=== PATIENT | female | born 1950 | race Two or more races ===

== ENCOUNTER → 2024-06-14 | Outpatient (CLI) | payer OTHER, MEDICAID, SELFPAY ==
[2024-06-14 09:41] LABS: Alanine Aminotransferase 15 U/L (10-49); Albumin, Serum 4.5 gm/dL (3.4-4.8); Alkaline Phosphatase 110 U/L (46-116); Anion Gap 7 (7-16); Aspartate Amino Transferase 14 U/L (0-34); BUN/Creatinine Ratio 23 Ratio (12-20); Bilirubin,Total 0.5 mg/dL (0.3-1.2); Blood Urea Nitrogen 28 mg/dL (9-23); Calcium 9.4 mg/dL (8.3-10.6); Calcium (Corrected) 9.4 mg/dL (8.5-10.1); Carbon Dioxide 27.5 mMol/L (20.0-31.0); Cardiac Risk Estimate 4.1 RATIO (3.7-5.6); Chloride 105 mMol/L (98-107); Cholesterol 183 mg/dL (132-200); Creatinine (Component) 1.2 mg/dL (0.6-1.3); Free T4 (Free Thyroxine) 1.01 ng/dL (0.89-1.76); Globulin 2.3 gm/dL (2.3-3.5); Glucose 175 mg/dL (74-106); HDL Cholesterol 45 mg/dL (40-60); LDL Cholesterol,Calculated 106 mg/dL (0-130); Osmolality,Calculated 287 (275-295); Potassium 4.4 mMol/L (3.4-5.1); Sodium 139 mMol/L (136-145); Thyroid Stimulating Hormone 2.21 uIU/mL (0.55-4.78); Total Protein 6.8 gm/dL (5.7-8.2); Triglycerides 158 mg/dL (30-150); eGFR 47 See Note
[2024-06-14 09:44] LABS: Vitamin B12 986 pg/mL (211-911)
== END | disposition home or self-care (01) ==
LOC: COPL 08:30
PROVIDERS: PCP Family Medicine; Referring Provider Family Medicine; Visit Provider Family Medicine
DX: I12.9 Hypertensive chronic kidney disease with stage 1 through stage 4 chronic kidney disease, or unspecified chronic kidney disease (principal); N18.31 Chronic kidney disease, stage 3a; E78.2 Mixed hyperlipidemia; R53.1 Weakness
CPT/HCPCS: 36415; 80053; 80061; 82607; 84439; 84443

== ENCOUNTER → 2024-08-10 | Outpatient (CLI) | payer MEDICARE, MEDICAID, SELFPAY ==
[2024-08-10 15:21] LABS: Collection Type, Urine Clean Catch
[2024-08-10 16:56] LABS: Bacteria,Urine 4+; Bilirubin,Urine Negative (Negative); Blood,Urine Negative (Negative); Clarity,Urine Turbid (Clear/Hazy); Color,Urine Yellow (Lt Yel-Yel); Glucose, Urine Trace (Negative); Hyaline Casts,Urine < 1 /hpf (0-1); Ketones,Urine Negative (Negative); Leukocyte Esterase,Urine Positive (Negative); Nitrite,Urine Negative (Negative); Protein,Urine 3+ (Neg - Trace); RBC,Urine 2 /hpf (0-3); Specific Gravity,Urine 1.022 (1.001-1.035); Squamous Epithelial Cell,Urine 7 /hpf (0-5); Urobilinogen,Urine Negative mg/dL (0.0-1.0); WBC,Urine 17 /hpf (0-5)
== END | disposition home or self-care (01) ==
PROVIDERS: Referring Provider Family Medicine; Visit Provider Family Medicine
DX: N30.00 Acute cystitis without hematuria (principal)
CPT/HCPCS: 81001; 87077; 87086; 87186

== ENCOUNTER → 2024-10-28 | Outpatient (CLI) | payer MEDICARE, MEDICAID, SELFPAY ==
[2024-10-28 09:36] LABS: Basophils % (Auto) 0 % (0-2.5); Eosinophils # (Auto) 0.2 Thou/mm3 (0.0-0.5); Eosinophils % (Auto) 2 % (0-10); Hematocrit 34.3 % (36.0-46.0); Hemoglobin 11.8 g/dL (12.0-16.0); Immature Granulocytes % (Auto) 0 % (0-0); Immature Granulocytes Auto 0.01 Thou/mm3 (0.00-0.00); Lymphocytes # (Auto) 2.5 Thou/mm3 (1.0-4.8); Lymphocytes % (Auto) 34 % (10-50); Mean Corpuscular HGB Conc 34.4 g/dl (31.0-37.0); Mean Corpuscular Hemoglobin 31.1 pg (25.0-35.0); Mean Corpuscular Volume 91 fL (80-100); Monocytes # (Auto) 0.5 Thou/mm3 (0.0-0.8); Monocytes % (Auto) 7 % (0-12); Neutrophils # (Auto) 4.1 Thou/mm3 (1.8-7.7); Neutrophils % (Auto) 56 % (37-80); Nucleated Red Blood Cell % 0 /100 WBC (0); Platelet Count 240 Thou/mm3 (140-440); RDW Standard Deviation 40.3 fL (36.4-46.3); Red Blood Count 3.79 Miln/mm3 (4.00-5.20); White Blood Count 7.3 Thou/mm3 (3.6-11.0)
[2024-10-28 10:56] LABS: Glucose Estimated Average 206 mg/dL (80-131); Hemoglobin A1C 8.8 % Hgb (4.8-6.0)
[2024-10-28 11:09] LABS: Alanine Aminotransferase 12 U/L (10-49); Albumin, Serum 4.2 gm/dL (3.4-4.8); Albumin/Globulin Ratio 1.7 (1.2-2.2); Alkaline Phosphatase 101 U/L (46-116); Anion Gap 8 (7-16); Aspartate Amino Transferase 14 U/L (0-34); BUN/Creatinine Ratio 13 Ratio (12-20); Bilirubin,Total 0.5 mg/dL (0.3-1.2); Blood Urea Nitrogen 16 mg/dL (9-23); Carbon Dioxide 27.3 mMol/L (20.0-31.0); Cardiac Risk Estimate 4.4 RATIO (3.7-5.6); Chloride 101 mMol/L (98-107); Cholesterol 202 mg/dL (132-200); Creatinine (Component) 1.2 mg/dL (0.6-1.3); Globulin 2.5 gm/dL (2.3-3.5); Glucose 196 mg/dL (74-106); HDL Cholesterol 46 mg/dL (40-60); LDL Cholesterol,Calculated 118 mg/dL (0-130); Osmolality,Calculated 278 (275-295); Potassium 4.8 mMol/L (3.4-5.1); Sodium 136 mMol/L (136-145); Thyroid Stimulating Hormone 2.73 uIU/mL (0.55-4.78); Total Protein 6.7 gm/dL (5.7-8.2); Triglycerides 192 mg/dL (30-150); eGFR 47 See Note
[2024-10-28 11:35] LABS: Creatinine MALB Rnd Ur 98 mg/dL (30-125); Microalbumin Creat Ratio 388 mg/gCrea (<30); Microalbumin, Random Urine > 380 mg/L (0-300)
== END | disposition home or self-care (01) ==
LOC: COPL 08:08
PROVIDERS: PCP Family Medicine; Referring Provider Family Medicine; Visit Provider Family Medicine
DX: E11.65 Type 2 diabetes mellitus with hyperglycemia (principal)
CPT/HCPCS: 36415; 80053; 80061; 82043; 82570; 83036; 84443; 85025

== ENCOUNTER → 2025-02-02 | Outpatient (CLI) | payer MEDICARE, MEDICAID, SELFPAY ==
[2025-02-02 10:46] LABS: Anion Gap 6 (7-16); BUN/Creatinine Ratio 21 Ratio (12-20); Blood Urea Nitrogen 29 mg/dL (9-23); Calcium 9.4 mg/dL (8.3-10.6); Carbon Dioxide 26.6 mMol/L (20.0-31.0); Chloride 106 mMol/L (98-107); Creatinine (Component) 1.4 mg/dL (0.6-1.3); Glucose 192 mg/dL (74-106); Osmolality,Calculated 288 (275-295); Potassium 5.2 mMol/L (3.4-5.1); Sodium 139 mMol/L (136-145); eGFR 39 See Note
[2025-02-02 11:40] LABS: Glucose Estimated Average 209 mg/dL (80-131); Hemoglobin A1C 8.9 % Hgb (4.8-6.0)
== END | disposition home or self-care (01) ==
LOC: COPL 08:51
PROVIDERS: PCP Family Medicine; Referring Provider Family Medicine; Visit Provider Family Medicine
DX: E11.21 Type 2 diabetes mellitus with diabetic nephropathy (principal); E11.65 Type 2 diabetes mellitus with hyperglycemia
CPT/HCPCS: 36415; 80048; 83036

== ENCOUNTER → 2025-03-28 | Outpatient (CLI) | payer MEDICARE, MEDICAID, SELFPAY ==
--- NOTE | 2025-03-28 | XR_ITS ---
Examination: Knee, right , 3 views Technique: Knee AP, lateral, oblique 3 views Date and time of exam: March 28, 2025 0800 hours INDICATIONS: Knee pain beginning one year ago. FINDINGS: Moderate to advanced tricompartment osteoarthritis, most severe medial joint space Moderate osteopenia No fracture or dislocation IMPRESSION: Moderate to advanced tricompartment osteoarthritis
[2025-03-28 09:32] LABS: Anion Gap 7 (7-16); BUN/Creatinine Ratio 17 Ratio (12-20); Blood Urea Nitrogen 22 mg/dL (9-23); Calcium 9.7 mg/dL (8.3-10.6); Carbon Dioxide 27.3 mMol/L (20.0-31.0); Chloride 107 mMol/L (98-107); Creatinine (Component) 1.3 mg/dL (0.6-1.3); Glucose 165 mg/dL (74-106); Osmolality,Calculated 288 (275-295); Potassium 5.1 mMol/L (3.4-5.1); Sodium 141 mMol/L (136-145); eGFR 43 See Note
[2025-03-28 10:01] LABS: Glucose Estimated Average 192 mg/dL (80-131); Hemoglobin A1C 8.3 % Hgb (4.8-6.0)
== END | disposition home or self-care (01) ==
LOC: CDIM 07:48
PROVIDERS: Referring Provider Family Medicine; Visit Provider Family Medicine
DX: M17.11 Unilateral primary osteoarthritis, right knee (principal); N18.2 Chronic kidney disease, stage 2 (mild); E11.65 Type 2 diabetes mellitus with hyperglycemia
CPT/HCPCS: 36415; 73562; 80048; 83036

== ENCOUNTER 2025-06-07 07:49 | Outpatient (AMB) | payer MEDICARE, MEDICAID, SELFPAY ==
[2025-06-07 08:13] VITALS: BP 147/84; PULSE 75; RESP 19; TEMP 36.5; O2SAT 97; BMI 26.1
--- NOTE | 2025-06-07 08:13 | ORTHONT_ITS ---
Vital signs 06/07/25 08:13 Height 1.5 m Height Method Stated Weight 58.684 kg Weight Measurement Method Standing Scale BMI 26.1 BP 147/84 H Blood Pressure Source Automatic Cuff Blood Pressure Location Left Upper Arm Position Sitting Respiration 19 Pulse 75 Pulse Source Monitor Temp 97.7 F Temp Source Temporal Artery Scan Pulse Oximetry (%) 97 Oxygen Delivery Method Room Air Med/Allergies Allergies & Medications Allergies codeine Allergy (Intermediate, Verified 06/07/25 08:14) VOMITING Medication Reconciliation amlodipine 2.5 mg tablet 2.5 mg PO QDAY 12/02/19 [History Confirmed 12/02/19] insulin degludec 200 unit/mL (3 mL) subcutaneous pen (Tresiba FlexTouch U-200 insulin) 40 unit subcut HS 12/02/19 [History Confirmed 12/02/19] megestrol 20 mg tablet 20 mg PO BID #30 tabs 12/08/21 [Rx] alendronate 70 mg tablet 70 mg PO QWEEK 06/07/25 [History Confirmed 06/07/25] celecoxib 200 mg capsule 200 mg PO QDAY 06/07/25 [History Confirmed 06/07/25] cetirizine 10 mg tablet 10 mg PO QDAY PRN 06/07/25 [History Confirmed 06/07/25] docusate sodium 100 mg capsule 100 mg PO QDAY 06/07/25 [History Confirmed 06/07/25] empagliflozin 25 mg tablet (Jardiance) 25 mg PO QAM 06/07/25 [History Confirmed 06/07/25] glimepiride 4 mg tablet 4 mg PO QAM 06/07/25 [History Confirmed 06/07/25] metformin 500 mg tablet 500 mg PO BID 06/07/25 [History Confirmed 06/07/25] sitagliptin phosphate 100 mg tablet (Januvia) 100 mg PO QDAY 06/07/25 [History Confirmed 06/07/25] Exam Exam Patient is in no acute distress and is cooperative with the examination today. Breathing is nonlabored. Patient has a normal mood and affect. The patient has a gait that is nonantalgic Bilateral extremities were evaluated and demonstrates sensation intact to light touch. Palpable pedal pulses are present. No significant edema is present. Bilateral hips were examined. The patient has no pain with log roll of the hips. Internal rotation to 30 degrees and external rotation to 30 degrees is painless. Negative FADIR. Right knee was examined today. The right knee is in reasonable alignment. Range of motion from 0-120 degrees. Knee is stable to varus and valgus as well as AP translation with <5mm. Patient has a negative McMurrays. There is no pain with patellofemoral compression and no crepitus noted. The knee is nontender to palpation. Left knee was examined today. The left knee is in neutral alignment. Incision is clean dry and intact. There is greater than 5 mm laxity in the medial lateral and AP plane Left knee x-rays demonstrates a cemented total knee replacement. These x-rays were over 2 years old. I would like to get new ones. The right knee demonstrates severe [id number] arthritis of the medial compartment Assessment and Plan Problem List (1) Bilateral knee pain: Status: Acute Plan: Patient is a 75-year-old female with bilateral knee pain with left greater than right knee pain and a history of a left total knee replacement. I would like to get current x-rays of the left knee replacement as the prior x-rays were over 2 years old. There is symptoms of instability on the left knee. I would like to see current x-rays and we will go from there. We will likely do an infection workup as well Plan We will see her back after x-rays are done Advanced Care Planning Discussion Advance care planning discussed with:: patient Office Procedures GNS Level of Care Nursing/Assessment Patient Status: Initial/New Patient Nursing Assessment/Reassesment: Medication Reconciliation, Update PMH in EMR and Vital Signs Coordination of Care: Complex Care and Chronic Disease 1-5, Education Complex Pt/Fam, Consent,records obtained, informed consent, 1 Ins Authorization, Lab and Imaging orders, Results/Orders obtained and Staff clarify orders Special Needs: Language special needs New Patient Charge New Patient Point Assignment: 1124 New Patient Point Charge: BELL VALET Level 4 ([id number]) MA Intake Visit Data Collection New Patient or Established: New Patient (never been to [facility]) Reason for Visit:: BILATERAL KNEE PAIN Seen by Clinical Staff ONLY (RN/MA): 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 PCP or OBGYN visit in last 3 months: Yes Hx Now: No Do You Feel Safe at Home: Yes Authorities Contacted: N/A Questionairres Past Medical History Past Medical History Have you ever been diagnosed with any of the following: Cardiology Problems Congestive Heart Failure: No Hypertension: Yes Respiratory Problems Chronic Obstructive Pulmonary Disease (COPD): No Bronchitis: Yes Pneumonia: Yes Genital/Urinary Problems Renal Disease: Yes Reproductive Problems Previous Pregnancies: Yes Uterine Prolapse: Yes Musculoskeletal Problems Arthritis: Yes Head,Eye,Nose,Throat Problems Cataracts: Yes Endocrine Problems Diabetes Mellitus Type 1: No Diabetes Mellitus Type 2: Yes Blood Problems Anemia: Yes Other Problems Blood Transfusions: Yes Anesthesia Reactions: No Chicken Pox: Yes Measles: Yes Surgical History Total Knee Replacement: Yes (LEFT 2021) Hysterectomy: Yes Subjective Visit Visit for: new patient and knee (BILATERAL) Immunization / Flu Flu Vaccine in the Last 12 Months: Yes Flu Vaccine Exclusion Criteria: Already Received History of Present Illness Chief complaint: BILATERAL KNEE PAIN LEFT WORSE THAN RIGHT Date of 1st surgery (if applicable): 07/2021 HISTORY OF PRESENT ILLNESS I, Sabino Aguirre, have obtained verbal consent from the patient, to be recorded during this encounter which may include, but not limited to, medical history, examination, treatment plans, and relevant health information.? Patient was informed that recording will be read and reviewed by myself before inclusion in the medical chart. The patient is a 75-year-old female presenting for bilateral knee pain. She reports that her left knee is more painful than the right. The pain in her left knee has been present for approximately 6 months and intensifies during ambulation. She also reports a sensation of instability in her knee, which she finds particularly bothersome. She has not received any pharmacological treatment for her knee pain. She has undergone imaging studies but has not been prescribed any analgesics. She has received two injections in the past but is reluctant to continue this treatment due to a fear of needles. Three years ago, she sustained a fracture in her left leg, which was not initially casted. A year later, she underwent a total knee replacement surgery performed in [place] for the left knee. She has had 2 injections for the right knee before She is diabetic and does not have it controlled, but does not know her A1c either. PAST SURGICAL HISTORY: Total knee replacement on the left knee. Personal History Occupation: RETIRED Pain Pain level (0-10): 6 Pain duration: WORSE WHEN WALKING Pain location: groin and anterior Pain quality: dull and aching Pain timing: night, increases with activity and stairs Associated signs & symptoms: weakness Ambulatory data Ambulatory device: none Treatments Number of previous injections: 2 (RIGHT KNEE) Improvement with previous injections: No Number of Physical Therapy sessions: 0 Improvement with PT: No Improvement with NSAIDS: no Review of Systems Review of Systems: All systems negative unless otherwise noted in HPI.
--- NOTE | 2025-06-07 08:23 | XR_ITS ---
EXAMINATION: Bilateral knees 2 views Right lateral knee left lateral knee 2 views Bilateral axial knees single view TECHNIQUE: Bilateral AP knees standing single view Standing right left lateral knee 2 views Bilateral Axuni single view total 5 views Date and time: June 07, 2025, 0839 hours INDICATIONS: Bilateral knee pain 1 year FINDINGS: Severe osteopenia Severe narrowing medial joint space right knee Significant osteoarthritis right patellofemoral joint No fracture Total left knee arthroplasty. Satisfactory alignment Healed fractures proximal left tibia fibula IMPRESSION: Severe narrowing medial joint space right knee Significant osteoarthritis right patellofemoral joint
== END 2025-06-07 08:25 | disposition home or self-care (01) ==
LOC: HODSRG 07:49
PROVIDERS: PCP Family Medicine; Referring Provider Family Medicine; Supervising Provider Orthopaedic Surgery Adult Reconstructive Orthopaedic Surgery; Visit Provider Orthopaedic Surgery Adult Reconstructive Orthopaedic Surgery
DX: M25.562 Pain in left knee (principal); M25.561 Pain in right knee; M17.11 Unilateral primary osteoarthritis, right knee; Z96.652 Presence of left artificial knee joint; E11.9 Type 2 diabetes mellitus without complications; I10 Essential (primary) hypertension
CPT/HCPCS: 73564; 99204; G0463

== ENCOUNTER → 2025-06-20 | Outpatient (CLI) | payer MEDICARE, MEDICAID, SELFPAY ==
--- NOTE | 2025-06-20 08:29 | XR_ITS ---
Examination: Knee, left, 3 views Technique: Knee AP, lateral, oblique 3 views Date and time of exam: June 20, 2025, 0839 hours INDICATIONS: Left-sided knee pain 1 year. FINDINGS: Severe osteopenia Healed fractures proximal tibia and proximal fibula Total left knee arthroplasty. Satisfactory alignment. No acute fracture IMPRESSION: Total left knee arthroplasty with satisfactory alignment
[2025-06-20 09:08] LABS: Glucose Estimated Average 177 mg/dL (80-131); Hemoglobin A1C 7.8 % Hgb (4.8-6.0)
[2025-06-20 09:11] LABS: Anion Gap 9 (7-16); BUN/Creatinine Ratio 18 Ratio (12-20); Blood Urea Nitrogen 24 mg/dL (9-23); Calcium 9.3 mg/dL (8.3-10.6); Carbon Dioxide 27.7 mMol/L (20.0-31.0); Chloride 107 mMol/L (98-107); Creatinine (Component) 1.3 mg/dL (0.6-1.3); Glucose 177 mg/dL (74-106); Osmolality,Calculated 294 (275-295); Potassium 5.1 mMol/L (3.4-5.1); Sodium 144 mMol/L (136-145); eGFR 43 See Note
== END | disposition home or self-care (01) ==
PROVIDERS: PCP Family Medicine; Referring Provider Family Medicine; Visit Provider Family Medicine
DX: M25.562 Pain in left knee (principal); Z96.652 Presence of left artificial knee joint; E11.22 Type 2 diabetes mellitus with diabetic chronic kidney disease; N18.2 Chronic kidney disease, stage 2 (mild); E11.65 Type 2 diabetes mellitus with hyperglycemia
CPT/HCPCS: 36415; 73562; 80048; 83036

== ENCOUNTER 2025-06-23 08:47 | Outpatient (AMB) | payer MEDICARE, MEDICAID, SELFPAY ==
[2025-06-23 09:05] VITALS: BP 181/90; PULSE 79; RESP 20; TEMP 36.1; O2SAT 98; BMI 26.2
--- NOTE | 2025-06-23 09:05 | ORTHONT_ITS ---
Vital signs 06/23/25 09:05 Height 1.5 m Height Method Stated Weight 59.08 kg Weight Measurement Method Standing Scale BMI 26.2 BP 181/90 H Blood Pressure Source Automatic Cuff Blood Pressure Location Left Upper Arm Position Sitting Respiration 20 Pulse 79 Pulse Source Monitor Temp 97.0 F Temp Source Temporal Artery Scan Pulse Oximetry (%) 98 Oxygen Delivery Method Room Air Med/Allergies Allergies & Medications Allergies codeine Allergy (Intermediate, Verified 06/23/25 09:06) VOMITING Medication Reconciliation amlodipine 2.5 mg tablet 2.5 mg PO QDAY 12/02/19 [History Confirmed 06/23/25] insulin degludec 200 unit/mL (3 mL) subcutaneous pen (Tresiba FlexTouch U-200 insulin) 40 unit subcut HS 12/02/19 [History Confirmed 06/23/25] megestrol 20 mg tablet 20 mg PO BID #30 tabs 12/08/21 [Rx Confirmed 06/23/25] alendronate 70 mg tablet 70 mg PO QWEEK 06/07/25 [History Confirmed 06/23/25] celecoxib 200 mg capsule 200 mg PO QDAY 06/07/25 [History Confirmed 06/23/25] cetirizine 10 mg tablet 10 mg PO QDAY PRN 06/07/25 [History Confirmed 06/23/25] docusate sodium 100 mg capsule 100 mg PO QDAY 06/07/25 [History Confirmed 06/23/25] empagliflozin 25 mg tablet (Jardiance) 25 mg PO QAM 06/07/25 [History Confirmed 06/23/25] glimepiride 4 mg tablet 4 mg PO QAM 06/07/25 [History Confirmed 06/23/25] metformin 500 mg tablet 500 mg PO BID 06/07/25 [History Confirmed 06/23/25] sitagliptin phosphate 100 mg tablet (Januvia) 100 mg PO QDAY 06/07/25 [History Confirmed 06/23/25] Exam Exam Patient is in no acute distress and is cooperative with the examination today. Breathing is nonlabored. Patient has a normal mood and affect. The patient has a gait that is nonantalgic Bilateral extremities were evaluated and demonstrates sensation intact to light touch. Palpable pedal pulses are present. No significant edema is present. Bilateral hips were examined. The patient has no pain with log roll of the hips. Internal rotation to 30 degrees and external rotation to 30 degrees is painless. Negative FADIR. Right knee was examined today. The right knee is in reasonable alignment. Range of motion from 0-120 degrees. Knee is stable to varus and valgus as well as AP translation with <5mm. Patient has a negative McMurrays. There is no pain with patellofemoral compression and no crepitus noted. The knee is nontender to palpation. Left knee was examined today. The left knee is in neutral alignment. Incision is clean dry and intact. There is greater than 5 mm laxity in the medial lateral and AP plane x-rays demonstrates a cemented total knee replacement on the left in reasonable alignment position. On the right, there is severe arthritis of the right knee Assessment and Plan Problem List (1) Bilateral knee pain: Status: Acute Plan: Patient is a 75-year-old female with bilateral knee pain with left greater than right knee pain and a history of a left total knee replacement. The patient reports persistent pain in the left knee. We ordered an ESR and CRP for an infection workup but she did not do it. I discussed the patient she may want to see the original surgeon who did the surgery if she has persistent pain since the surgery. On x-rays, there are no radiolucent lines. There may be some instability on exam and we can consider upsizing the poly. This implant is not a implant that I can get my hospital as it is not a common implant and thus I recommend the patient go to the original surgeon Plan We will see her back after x-rays are done Advanced Care Planning Discussion Advance care planning discussed with:: patient Office Procedures GNS Level of Care Nursing/Assessment Patient Status: Established Patient Nursing Assessment/Reassesment: Medication Reconciliation, Update PMH in EMR and Vital Signs Coordination of Care: Complex Care and Chronic Disease 1-5, Education Complex Pt/Fam, Consent,records obtained, informed consent, Results/Orders obtained and Staff clarify orders Special Needs: Language special needs Established Patient Charge Established Patient Point Assignment: 95 Established Patient Point Charge: EP Level 3 (80-115) MA Intake Visit Data Collection New Patient or Established: Established Patient (seen at [facility] within 3 years) Reason for Visit:: BL KNEE PAIN/XRAY RESULTS Seen by Clinical Staff ONLY (RN/MA): No 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 PCP or OBGYN visit in last 3 months: Yes Hx Now: No Do You Feel Safe at Home: Yes Authorities Contacted: N/A Questionairres Past Medical History Past Medical History Have you ever been diagnosed with any of the following: Cardiology Problems Congestive Heart Failure: No Hypertension: Yes Respiratory Problems Chronic Obstructive Pulmonary Disease (COPD): No Bronchitis: Yes Pneumonia: Yes Genital/Urinary Problems Renal Disease: Yes Reproductive Problems Previous Pregnancies: Yes Uterine Prolapse: Yes Musculoskeletal Problems Arthritis: Yes Head,Eye,Nose,Throat Problems Cataracts: Yes Endocrine Problems Diabetes Mellitus Type 1: No Diabetes Mellitus Type 2: Yes Blood Problems Anemia: Yes Other Problems Blood Transfusions: Yes Anesthesia Reactions: No Chicken Pox: Yes Measles: Yes Surgical History Total Knee Replacement: Yes (LEFT 2021) Hysterectomy: Yes Subjective Visit Visit for: follow up visit and knee (BILATERAL) Immunization / Flu Flu Vaccine in the Last 12 Months: Yes Flu Vaccine Exclusion Criteria: Already Received History of Present Illness Chief complaint: BILATERAL KNEE PAIN LEFT WORSE THAN RIGHT Date of 1st surgery (if applicable): 07/2021 HISTORY OF PRESENT ILLNESS ISabino, have obtained verbal consent from the patient, to be recorded during this encounter which may include, but not limited to, medical history, examination, treatment plans, and relevant health information.? Patient was informed that recording will be read and reviewed by myself before inclusion in the medical chart. The patient is a 75-year-old female presenting for bilateral knee pain. She reports that her left knee is more painful than the right. The pain in her left knee has been present for approximately 6 months and intensifies during ambulation. She also reports a sensation of instability in her knee, which she finds particularly bothersome. She has not received any pharmacological treatment for her knee pain. She has undergone imaging studies but has not been prescribed any analgesics. She has received two injections in the past but is reluctant to continue this treatment due to a fear of needles. Three years ago, she sustained a fracture in her left leg, which was not initially casted. A year later, she underwent a total knee replacement surgery performed in [place] for the left knee. She reports significant pain since surgery on the left knee. She reports it is difficult to bend her knee. She has had 2 injections for the right knee before She is diabetic and does not have it controlled, but does not know her A1c either. PAST SURGICAL HISTORY: Total knee replacement on the left knee. Personal History Occupation: RETIRED Pain Pain level (0-10): 6 Pain duration: WORSE WHEN WALKING Pain location: groin and anterior Pain quality: dull and aching Pain timing: night, increases with activity and stairs Associated signs & symptoms: weakness Ambulatory data Ambulatory device: none Treatments Number of previous injections: 2 (RIGHT KNEE) Improvement with previous injections: No Number of Physical Therapy sessions: 0 Improvement with PT: No Improvement with NSAIDS: no Review of Systems Review of Systems: All systems negative unless otherwise noted in HPI.
== END 2025-06-23 09:37 | disposition home or self-care (01) ==
LOC: HODSRG 08:47
PROVIDERS: PCP Family Medicine; Referring Provider Family Medicine; Supervising Provider Orthopaedic Surgery Adult Reconstructive Orthopaedic Surgery; Visit Provider Orthopaedic Surgery Adult Reconstructive Orthopaedic Surgery
DX: M25.561 Pain in right knee (principal); M25.562 Pain in left knee
CPT/HCPCS: 99213; G0463

== ENCOUNTER → 2025-07-05 | Outpatient (CLI) | payer MEDICARE, MEDICAID, SELFPAY ==
--- NOTE | 2025-07-05 14:30 | XR_ITS ---
Examination: Screening digital mammography, bilateral Computer aided detection 3-D breast Tomosynthesis, bilateral Date and time of exam: 07/05/2025, 1:13 p.m. Comparisons: 07/04/2023 Indications: Screening Technique: Nonmagnified MLO, CC views of the breasts to been obtained, reconstructed from 3-D Tomosynthesis images. R2 computer aided detection program utilized for evaluation of suspicious masses and/or abnormal calcifications. 3-D Tomosynthesis images obtained. Technologist: Findings: There are scattered areas of fibroglandular density. Multiple benign oil cysts. Otherwise, no evidence of abnormal masses or suspicious calcifications. Impression: BI-RADS category 2: Benign findings Recommend 1 year follow-up mammogram
== END | disposition home or self-care (01) ==
PROVIDERS: PCP Family Medicine; Referring Provider Family Medicine; Visit Provider Family Medicine
DX: Z12.31 Encounter for screening mammogram for malignant neoplasm of breast (principal); R92.323 Mammographic fibroglandular density, bilateral breasts
CPT/HCPCS: 77063; 77067